=== PATIENT | female | born 1985 | race African-American/Black ===

== ENCOUNTER 2019-11-06 00:37 | Observation (INO) | payer MEDICAID ==
[~2019-11-06] VITALS: Ht 144.8 cm; Wt 59.0 kg
[2019-11-06] MEDS ORDERED: DEXT 5%/LACTATED RINGERS 1,000 ML IV SCH (02:30)
[2019-11-06 03:11] LABS: CLARITY URINE CLEAR (CLEAR); COLOR URINE YELLOW (YELLOW); KETONES URINE NEGATIVE (NEGATIVE); LEUKOCYTE ESTERASE URINE NEGATIVE (NEGATIVE); NITRITE URINE NEGATIVE (NEGATIVE); OCCULT BLOOD URINE NEGATIVE (NEGATIVE); PROTEIN URINE NEGATIVE (NEGATIVE); SPECIFIC GRAVITY URINE 1.005 (1.005-1.030); UROBILINOGEN URINE 0.2 E.U./dL (0.2-1.0)
[2019-11-06] MEDS ORDERED: PREN-182 MT (04:10)
== END 2019-11-06 05:00 | disposition home or self-care (01) ==
LOC: 8 EST LDRP 00:37
PROVIDERS: ADMIT Obstetrics & Gynecology; ATTEND Obstetrics & Gynecology
DX: O21.2 Late vomiting of pregnancy (principal); O62.9 Abnormality of forces of labor, unspecified; O26.893 Other specified pregnancy related conditions, third trimester; R10.9 Unspecified abdominal pain; Z3A.36 36 weeks gestation of pregnancy
CPT/HCPCS: 81003; 96360; 99281; G0378